=== PATIENT | female | born 1955 | race Caucasian/White ===

== ENCOUNTER → 2024-04-29 | Outpatient (CLI) | payer MEDICARE ==
--- NOTE | 2024-04-30 08:44 | MM ---
Reason for Exam: Screening (asymptomatic). Last mammogram was performed 1 year(s) and 2 month(s) ago. Patient History: Menarche at age 11. First Full-Term at age 25. Left ovary removed at age 33. Right ovary removed at age 33. Hysterectomy at age 33. Estrogen, from age 33 until age 64. Patient used Hormonal Contraceptives for 2 years. Mother had breast cancer under age 50. Risk Values: Saritha 5 year model risk: 3.4%. NCI Lifetime model risk: 10.2%. Prior Study Comparison: 01/27/2021 Bilateral MG 3D screening mammo w/cad, Unknown. 01/30/2022 Bilateral MG 3D screening mammo w/cad, Unknown. 02/09/2023 Bilateral MG 3D screening mammo w/cad, Unknown. Tissue Density: There are scattered areas of fibroglandular density. Findings: Analyzed By CAD. Right breast: There is no suspicious group of microcalcifications or new suspicious mass. Benign-appearing calcifications right breast. Left breast: There is no suspicious group of microcalcifications or new suspicious mass. Overall Assessment: Benign, BI-RAD 2 Management: Screening Mammogram of both breasts in [address] [facility] will attempt to contact patient to return for supplemental views and ultrasound if indicated. Patient should continue monthly self-breast exams. A clinical breast exam by your physician is recommended on an annual basis. This exam should not preclude additional follow-up of suspicious palpable abnormalities. Note on Saritha scores and lifetime risk: 1. A Saritha score greater than 3% is considered moderate risk. If this is the case, consider specialist referral to assess eligibility for a risk reducing agent. 2. If overall lifetime risk for the development of breast cancer is 20% or higher, the patient may qualify for future screening with alternating mammogram and breast MRI. [facility], , 04/30/2024 8:41 AM. Electronically signed and approved by: Addison Garcia DO
--- NOTE | 2024-04-30 08:48 | BD ---
EXAMINATION TYPE: Axial Bone Density DATE OF EXAM: 04/29/2024 CLINICAL HISTORY: 68 years old Female. ICD-10 CODE: Z78.[address] , Additional Hi story: Height: 5 ft 5 in Weight: 220 FRAX RISK QUESTIONS: Alcohol (3 or more units per day): no Family History (Parent hip fracture): no Glucocorticoids (More than 3mos): no (Ex: prednisone, prednisolone, methylprednisolone, dexamethasone, and hydrocortisone). History of Fracture in Adulthood: yes Secondary Osteoporosis: 1. Type 1 Diabetes: no 2. Hyperthyroidism: no 3. Menopause before 45: yes 4. Malnutrition: no 5. Chronic liver disease: no Rheumatoid Arthritis: no Current Tobacco Use: no RISK FACTORS HISTORY OF: Surgery to Spine/Hip(right/left)/Wrist (right/left): no MEDICATIONS: Thyroid Medications: none Osteoporosis Medications: none EXAM MEASUREMENTS: Bone mineral densitometry was performed using the [employer] System. Bone mineral density as measured about the Lumbar spine is: ----- L1-L4(G/cm2): 1.096 T Score Values are as follows: ----- L1: -1.4 ----- L2: -0.7 ----- L3: -0.6 ----- L4: -0.4 ----- L1-L4: -0.7 Z Score Values are as follows: ----- L1: -0.9 ----- L2: -0.2 ----- L3: -0.1 ----- L4: 0.1 ----- L1-L4: -0.2 baseline Bone mineral density about the R hip (g/cm2): 0.911 Bone mineral density about the L hip (g/cm2): 0.911 T Score values are as follows: -----R Neck: -0.9 -----L Neck: -0.9 -----R Total: -0.2 -----L Total: -0.1 Z Score values are as follows: -----R Neck: 0.0 -----L Neck: 0.0 -----R Total: 0.4 -----L Total: 0.5 baseline FRAX%s: The graph provided illustrates a 12.6 % chance for a major osteoporotic fx and a 1.1 % chance for the hips probability for fx in 10 years time. IMPRESSION: Normal (Values between +1 and -1 indicate normal bone mass). Consider repeating this study in 5 year s or sooner if there is some new clinical indication. NOTE: T-SCORE=SD OF THE YOUNG ADULT MEAN. [facility], , 04/30/2024 8:46 AM
== END | disposition home or self-care (01) ==
LOC: RADMAMWWP 13:06
PROVIDERS: ATTEND Family Medicine
DX: Z12.31 Encounter for screening mammogram for malignant neoplasm of breast (principal); M85.89 Other specified disorders of bone density and structure, multiple sites; R92.323 Mammographic fibroglandular density, bilateral breasts; Z78.0 Asymptomatic menopausal state; Z80.3 Family history of malignant neoplasm of breast; Z90.722 Acquired absence of ovaries, bilateral
CPT/HCPCS: 77063; 77067; 77080